=== PATIENT | female | born 1995 | race Caucasian/White ===

== ENCOUNTER → 2018-07-24 | Outpatient (CLI) | payer BC ==
--- NOTE | 2018-07-25 08:33 | KCIC ---
EXAM: MRI RIGHT KNEE DATE: 07/24/2018 4:15 PM CLINICAL INDICATION: Right knee pain with certain movements. COMPARISON: Knee radiographs 07/07/2018 TECHNIQUE: Multiplanar, multisequence MRI of the right knee was performed without contrast. FINDINGS: No significant knee joint effusion. No Payne's cyst. The ACL and PCL are intact. The MCL, fibular collateral ligament, biceps femoris, IT band and popliteus tendon are intact, normal in signal and morphology. The extensor mechanism is intact. Essentially neutral patellar tracking. 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 There is mild edema at the anterolateral aspect of Hoffa's fat pad adjacent to the patella which may be seen with Hoffa's impingement syndrome/lateral patellar tendon-lateral femoral condyle friction syndrome. Medial meniscus: Intact Lateral meniscus: Intact Mild edema within the lateral head gastrocnemius muscle belly, low-grade strain. No full-thickness cartilage defect is identified. No fracture or osteonecrosis. IMPRESSION: 1. Edema within the superolateral portion of the infrapatellar fat pad may be seen with Hoffa fat pad impingement syndrome/lateral patellar tendon-lateral femoral condyle friction syndrome. 2. Low-grade strain lateral head gastrocnemius 3. 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 Electronically signed by: Garrett Clayton MD (07/25/2018 8:30 AM) [id number]
== END | disposition home or self-care (01) ==
LOC: EDSEX 15:31 → KCIC MRI 15:31
PROVIDERS: ATTEND Orthopaedic Surgery
DX: M25.461 Effusion, right knee (principal); M79.4 Hypertrophy of (infrapatellar) fat pad
CPT/HCPCS: 73721